=== PATIENT | male | born 1990 | race Two or more races ===

== ENCOUNTER 2017-08-22 01:55 | Inpatient (IN) | payer BC, OTHER ==
[~2017-08-22] VITALS: Ht 170.2 cm; Wt 72.7 kg
[2017-08-22] MEDS ORDERED: LIDOCAINE-MPF 1%, 2ML ONE (02:23)
[2017-08-22] MEDS ORDERED: LIDOCAINE-MPF 1%, 2ML INFIL ONE (02:30)
[2017-08-22] MEDS ORDERED: DIPH,PERTUSS(ACELL),TET VAC/PF 0.5 ML IM-VACC ONE ×2 (02:30→04:53)
[2017-08-22 03:36] LABS: BASOPHILS # (AUTO) 0.06 x10^3/uL (0-0.1); BASOPHILS % (AUTO) 0 % (0-1); EOSINOPHILS # (AUTO) 0.07 x10^3/uL (0-0.4); EOSINOPHILS % (AUTO) 1 % (1-7); LYMPHOCYTES % (AUTO) 18 % (22-44); MD NO; MEAN CORPUSCULAR VOLUME 94.3 fL (81-97); MEAN PLATELET VOLUME 8.2 fL (7.4-10.4); MONOCYTES # (AUTO) 0.89 x10^3/uL (0.2-0.8); MONOCYTES % (AUTO) 6 % (2-9); NEUTROPHILS # (AUTO) 10.82 x10^3/uL (1.8-6.8); NEUTROPHILS % (AUTO) 76 % (42-75); PLATELET COUNT 302 x10^3/uL (130-400); RED BLOOD COUNT 5.18 x10^6/uL (4.38-5.82)
[2017-08-22 03:47] LABS: ALBUMIN 4.2 g/dL (3.4-5.0); ANION GAP 9 mmol/L (5-15); CALCIUM 8.5 mg/dL (8.5-10.1); CHLORIDE 108 mmol/L (98-107)
[2017-08-22 03:56] LABS: ALANINE AMINOTRANSFERASE 25 U/L (12-78); ALKALINE PHOSPHATASE 85 U/L (45-117); BILIRUBIN,TOTAL 0.2 mg/dL (0.2-1.0); TOTAL PROTEIN 8.1 g/dL (6.4-8.2)
[2017-08-22 03:58] LABS: ACETAMINOPHEN < 2 mcg/mL (10-30); SALICYLATE LEVEL < 1.7 mg/dL (2.8-20.0)
[2017-08-22 04:03] LABS: AMPHETAMINE SCREEN, URINE Negative (Negative); BARBITURATE SCREEN, URINE Negative (Negative); BENZODIAZEPINE SCREEN, URINE Negative (Negative); CANNABINOID SCREEN, URINE Negative (Negative); COCAINE SCREEN, URINE Negative (Negative); METHADONE SCREEN, URINE Negative (Negative); OPIATE SCREEN, URINE Negative (Negative)
[2017-08-22] MEDS ORDERED: SODIUM CHLORIDE 0.9% 1,000 ML IV ONE (04:32)
[2017-08-22 05:43] VITALS: BP 103/72
[2017-08-22 08:00] VITALS: BP 110/74
[2017-08-22] MEDS ORDERED: LABETALOL 5MG/ML, 20ML IVPush PRN (08:30)
[2017-08-22] MEDS ORDERED: POLYETHYLENE GLYCOL 17 GM PACKET PO PRN (08:30)
[2017-08-22] MEDS ORDERED: ONDANSETRON ODT 4 MG PO PRN (08:30)
[2017-08-22] MEDS ORDERED: hydrALAzine 20 MG/ML, 1ML IVPush PRN (08:30)
[2017-08-22] MEDS ORDERED: ONDANSETRON 2MG/ML, 2ML IVPush PRN (08:30)
[2017-08-22] MEDS ORDERED: DOCUSATE 100 MG CAPSULE PO PRN (08:30)
[2017-08-22 09:13] LABS: INTERNATIONAL NORMALIZED RATIO 0.97 (0.93-1.1)
[2017-08-22 09:35] LABS: FREE T4 (FREE THYROXINE) 1.41 ng/dL (0.76-1.46); THYROID STIMULATING HORMONE 0.886 mIU/L (0.358-3.740)
[2017-08-22] MEDS: POTASSIUM CHLORIDE 20 MEQ, MAGNESIUM SULFATE 2 GM, THIAMINE 100 MG, MVI ADULT 10 ML, FO... IV SCH (10:29)
[2017-08-22 10:39] LABS: HEMOGLOBIN A1C 5.4 % (4.2-6.3)
[2017-08-22 11:48] VITALS: BP 108/73
[2017-08-22 12:55] VITALS: BP 122/75
[2017-08-22 19:05] VITALS: BP 120/69
[2017-08-23 02:14] VITALS: BP 121/74
[2017-08-23 03:37] LABS: MICROSCOPIC NOT IND
[2017-08-23 03:39] LABS: CULTURE INDICATED? NO
[2017-08-23 05:38] LABS: BASOPHILS # (AUTO) 0.04 x10^3/uL (0-0.1); BASOPHILS % (AUTO) 0 % (0-1); EOSINOPHILS # (AUTO) 0.17 x10^3/uL (0-0.4); EOSINOPHILS % (AUTO) 2 % (1-7); LYMPHOCYTES % (AUTO) 25 % (22-44); MD NO; MEAN CORPUSCULAR HEMOGLOBIN 32.4 pg (27.5-34.5); MEAN CORPUSCULAR HGB CONC 34.5 g/dL (33.2-36.2); MEAN CORPUSCULAR VOLUME 93.8 fL (81-97); MEAN PLATELET VOLUME 8.7 fL (7.4-10.4); MONOCYTES # (AUTO) 0.93 x10^3/uL (0.2-0.8); MONOCYTES % (AUTO) 9 % (2-9); NEUTROPHILS % (AUTO) 63 % (42-75); PLATELET COUNT 259 x10^3/uL (130-400); RED BLOOD COUNT 4.58 x10^6/uL (4.38-5.82); RED CELL DISTRIBUTION WIDTH 12.5 % (9.4-14.8)
[2017-08-23 05:47] LABS: ALBUMIN 3.5 g/dL (3.4-5.0); CHLORIDE 108 mmol/L (98-107)
[2017-08-23 05:52] LABS: ALANINE AMINOTRANSFERASE 20 U/L (12-78); ALKALINE PHOSPHATASE 54 U/L (45-117); ANION GAP 8 mmol/L (5-15); CALCIUM 8.9 mg/dL (8.5-10.1); CHOL/HDL RATIO 2.2; CHOLESTEROL, TOTAL 126 mg/dL (140-239); CREATININE 0.83 mg/dL (0.7-1.3); HDL CHOL % 46 % (26-37); HDL CHOLESTEROL (DIRECT) 58 mg/dL (40-60); LDL CHOLESTEROL,CALCULATED 45 mg/dL (54-169); LDL/HDL RATIO 0.8 (0.5-3.0); TOTAL PROTEIN 6.8 g/dL (6.4-8.2); TRIGLYCERIDES 115 mg/dL (50-200); VLDL CHOLESTEROL 23 mg/dL (0-25)
[2017-08-23 07:30] VITALS: BP 117/67
[2017-08-23 08:33] LABS: MICROSCOPIC NOT IND
[2017-08-23 08:37] LABS: CULTURE INDICATED? NO
[2017-08-23] MEDS: POTASSIUM CHLORIDE 20 MEQ, MAGNESIUM SULFATE 2 GM, THIAMINE 100 MG, MVI ADULT 10 ML, FO... IV SCH (10:23)
== END 2017-08-23 15:55 | disposition home or self-care (01) | DRG 157 ==
LOC: ED 04:32 → EDIP 04:33 → 4WST 08:04
PROVIDERS: ADMIT Internal Medicine; ATTEND Internal Medicine
DX: S01.511A Laceration without foreign body of lip, initial encounter (principal); S06.5X0A Traumatic subdural hemorrhage without loss of consciousness, initial encounter; D72.829 Elevated white blood cell count, unspecified; E86.0 Dehydration; F10.129 Alcohol abuse with intoxication, unspecified; S01.512A Laceration without foreign body of oral cavity, initial encounter; S40.212A Abrasion of left shoulder, initial encounter; Z71.41 Alcohol abuse counseling and surveillance of alcoholic; W19.XXXA Unspecified fall, initial encounter; Y93.89 Activity, other specified; Y90.8 Blood alcohol level of 240 mg/100 ml or more; Y92.89 Other specified places as the place of occurrence of the external cause; Y99.8 Other external cause status
CPT/HCPCS: 12051; 36415; 70450; 80053; 80061; 80307; 80329; 81003; 83036; 83735; 84100; 84439; 84443; 85025; 85610; 90715; 99285; J3411; J3475; J3480; J3490; J7042; G0480; J7030